=== PATIENT | female | born 1990 | race Caucasian/White ===

== ENCOUNTER → 2018-09-13 07:37 | Outpatient (CLI) | payer OTHER, SELFPAY ==
--- NOTE | 2018-09-13 07:42 | US_ITS ---
STUDY: SECOND AND THIRD TRIMESTER OBSTETRICAL ULTRASOUND REASON FOR EXAM: Female, 28 years old. Routine survey. LMP: April 13, 2018. TECHNIQUE: Transabdominal TECHNICAL QUALITY: Adequate. PRIOR ULTRASOUND: None. FINDINGS: There is a single intrauterine fetus. The fetus is in a cephalic presentation. There is demonstrated cardiac activity with a heart rate of 128 bpm. There is a normal amniotic fluid volume. The largest amniotic fluid pocket measures 9.2 cm x 3.7 cm. The amniotic fluid index (OFELIA) is normal. The placenta is anterior in location and is not low lying. There are Grade 0 placental changes. The cervix measures 3.3 cm in length. The bilateral adnexal regions are normal. BIOMETRY: BPD: 4.89 cm: 20 weeks, 6 days HC: 18.83 cm: 21 weeks, 1 days AC: 15.38 cm: 20 weeks, 5 days FL: 3.41 cm: 20 weeks, 6 days CI: 75% FL/BPD: 70% FL/HC: FL/AC: 22% HC/AC: 1.22 age by current US: 21 weeks, 0 days. LORRAINE by current US: January 24, 2019. Estimated weight: 371 grams, +/- 54 grams, 6 %. Age by LMP: 21 weeks, 6 days. LORRAINE by LMP: January 18, 2019. ANATOMY: Gender: Male Cranium: Normal lateral ventricles. Normal choroid plexus. Normal cerebellum. Normal cisterna magna. Normal face, nose and lips. Chest: Normal 4-chamber heart. Abdomen/Pelvis: Normal diaphragm. Normal stomach. Normal abdominal wall. Normal cord insertion. Normal 3 vessel cord. Normal kidneys. Normal bladder. Spine: There is limited visualization of the spine due to the positioning and maternal body habitus. Extremities: Normal bilateral upper extremities. Normal bilateral lower extremities. US/OB Anatomy Scan IMPRESSION: Single live intrauterine gestation with a mean gestational age of 21 weeks. Electronically Signed: Dawson John MD at 9:28 EST Tel [phone], Service support ,
== END ==
DX: Z36.2 Encounter for other antenatal screening follow-up (principal)
CPT/HCPCS: 76805

== ENCOUNTER 2018-12-11 18:45 | Outpatient (CLI) | payer OTHER, SELFPAY ==
[2018-12-11 19:14] VITALS: BMI 41.5
--- NOTE | 2018-12-12 11:19 | OB.TRI.NOTE ---
- Problem List (1) Decreased movements in third trimester Status: Acute Qualifiers: Fetus number: single or unspecified fetus Qualified Code(s): O36.8130 - Decreased movements, third trimester, not applicable or unspecified History of Present Illness Date of Service: 12/11/18 Was patient seen by the physician?: No Reason For Visit: DECREASED MOVEMENT Date of Service: 12/11/18 Final LORRAINE: 01/18/19 Final LORRAINE Source: US <20 weeks Gestational age: 34 Weeks and 5 Days History of Present Illness: Patient presents reporting lower back cramping and irregular contractions throughout the day. Over the last few hours she has noticed decreased movements. Patient denies fever, vaginal bleeding or vaginal discharge. Allergies No Known Allergies Allergy (Verified 12/11/18 19:15) Review of Systems Unable to obtain accurate/complete ROS d/t: See nursing note for ROS Physical Exam Vitals: VSS, Afebrile - see nursing note for PE NST - FHR Rate Baby A Baseline: 150 Variability:: Moderate Accelerations:: 15 x 15 Decelerations:: None NST Reactive:: Yes, Appropriate for gestational age FHR Category:: Category I Uterine Activity:: Uterine irritability noted on tocometer Impression/Plan 28 y/o @ 34+ weeks, Decreased Movement - Category I FHT noted P: 1) Reassurance provided - [facility] teaching and PTL precautions reviewed 2) Patient to follow-up with [place] [facility] as scheduled Alyce MERRILL
--- NOTE | 2018-12-12 11:25 | OB.TRI.HP_ITS ---
- Problem List (1) Decreased movements in third trimester Status: Acute Qualifiers: Fetus number: single or unspecified fetus Qualified Code(s): O36.8130 - Decreased movements, third trimester, not applicable or unspecified History of Present Illness Date of Service: 12/11/18 Was patient seen by the physician?: No Reason For Visit: DECREASED MOVEMENT Date of Service: 12/11/18 Final LORRAINE: 01/18/19 Final LORRAINE Source: US <20 weeks Gestational age: 34 Weeks and 5 Days History of Present Illness: Patient presents reporting lower back cramping and irregular contractions throughout the day. Over the last few hours she has noticed decreased movements. Patient denies fever, vaginal bleeding or vaginal discharge. Allergies No Known Allergies Allergy (Verified 12/11/18 19:15) Review of Systems Unable to obtain accurate/complete ROS d/t: See nursing note for ROS Physical Exam Vitals: VSS, Afebrile - see nursing note for PE NST - FHR Rate Baby A Baseline: 150 Variability:: Moderate Accelerations:: 15 x 15 Decelerations:: None NST Reactive:: Yes, Appropriate for gestational age FHR Category:: Category I Uterine Activity:: Uterine irritability noted on tocometer Impression/Plan 28 y/o @ 34+ weeks, Decreased Movement - Category I FHT noted P: 1) Reassurance provided - [facility] teaching and PTL precautions reviewed 2) Patient to follow-up with [place] [facility] as scheduled Alyce MERRILL
== END 2018-12-11 20:00 | disposition home or self-care (01) ==
LOC: WPOUT 18:55 → WP 18:56
PROVIDERS: Referring Provider Advanced Practice Midwife; Visit Provider Advanced Practice Midwife
DX: O36.8130 Decreased fetal movements, third trimester, not applicable or unspecified (principal); Z3A.34 34 weeks gestation of pregnancy
CPT/HCPCS: 59025; 59050; 99218; G0378

== ENCOUNTER 2018-12-13 12:30 | Outpatient (CLI) | payer OTHER, SELFPAY ==
[2018-12-13] MEDS: Lactated Ringers 1,000 ML 999 ML IV (13:05)
[2018-12-13 13:09] VITALS: BMI 40.6
[2018-12-13 13:25] LABS: Hematocrit 39.3 % (37-47); Hemoglobin 12.9 g/dl (12.0-15.0); Mean Corp Hgb Conc 32.8 g/gl (32-36); Mean Corpuscular Hgb 26.7 pg (27.0-32.0); Mean Corpuscular Volume 81.4 fL (81-99); Mean Platelet Vol. 8.7 fl (6.2-12.0); Platelet Count 331 K/mm3 (150-450); RBC Distribution Width CV 15.1 % (11.6-14.6); RBC Distribution Width SD 44.6 fl (35.1-43.9); Red Blood Count 4.83 M/mm3 (4.2-5.4); White Blood Count 13.4 K/mm3 (4.4-11.0)
[2018-12-13 13:39] LABS: Scan Indicated on CBC? Y/N NO
[2018-12-13 13:53] LABS: ALB/GLOB Ratio 0.7 RATIO (0.9-2.4); AST(SGOT) 22 U/L (15-37); Alanine Aminotransfer ALT/SGPT 26 U/L (13-56); Albumin, Serum 2.9 g/dL (3.2-5.0); Alkaline Phosphatase 107 U/L (45-117); Anion Gap 7 (5-15); BUN 7 mg/dL (7-18); BUN/Creat Ratio 12.3 RATIO (10-20); Calcium,Total 8.3 mg/dL (8.5-10.1); Chloride 108 mmol/L (98-107); Creatinine, Serum 0.57 mg/dL (0.55-1.02); EST Glomerular Filtration Rate 133 mL/min (>60); Est Glom Filt Rate - Afr Amer 160 mL/min (>60); Free T3 2.4 pg/mL (2.18-3.98); Glucose 87 mg/dL (74-106); Potassium 3.5 mmol/L (3.5-5.1); Protein, Total 6.9 g/dL (6.4-8.2); Sodium Level 137 mmol/L (136-145); T4 Free Direct 0.84 ng/dL (0.76-1.46); Thyroid Stim Hormone (TSH) 0.97 uIU/mL (0.358-3.74)
--- NOTE | 2018-12-13 17:01 | OB.TRI.PN ---
Progress Notes Date of Service: 12/13/18 Progress Note: S: 28 year old 34w6d LORRAINE female Patient seen in office for visit. heart rate elevated between 170-180. NST showed baseline rate of 170. Sent to L&D for extended monitoring. Denied any feaver, aches, chills, flu like symptoms, new medications or other concerns. O: NST reactive, 155, moderate variability, accels, variable decel. Reactive NST A: tachycardia P: 1) 1 liter LR, vitals, CMP, CBC, TSH, free T3 and free T4 all normal. 2) D/C home and follow up in office this week 3) Consult [facility] regarding possible echo. Laboratory Studies: Laboratory Tests 12/13/18 12/13/18 Range/Units 13:05 13:05 WBC 13.4 H (4.4-11.0) K/mm3 RBC 4.83 (4.2-5.4) M/mm3 Hgb 12.9 (12.0-15.0) g/dl Hct 39.3 (37-47) % MCV 81.4 (81-99) fL MCH 26.7 L (27.0-32.0) pg MCHC 32.8 (32-36) g/gl RDW 15.1 H (11.6-14.6) % RDW Differential 44.6 H (35.1-43.9) fl Plt Count 331 (150-450) K/mm3 MPV 8.7 (6.2-12.0) fl Sodium 137 (136-145) mmol/L Potassium 3.5 (3.5-5.1) mmol/L Chloride 108 H (98-107) mmol/L Carbon Dioxide 22.0 (21.0-32.0) mmol/L Anion Gap 7 (5-15) BUN 7 (7-18) mg/dL Creatinine 0.57 (0.55-1.02) mg/dL Estim Creat Clear Calc 146.90 ml/min Est GFR (MDRD) Af Amer 160 (>60) mL/min Est GFR (MDRD) Non-Af 133 (>60) mL/min BUN/Creatinine Ratio 12.3 (10-20) RATIO Glucose 87 (74-106) mg/dL Calcium 8.3 L (8.5-10.1) mg/dL Total Bilirubin 0.30 (0.20-1.00) mg/dL AST 22 (15-37) U/L ALT 26 (13-56) U/L Alkaline Phosphatase 107 (45-117) U/L Total Protein 6.9 (6.4-8.2) g/dL Albumin 2.9 L (3.2-5.0) g/dL Globulin 4.0 (2.2-4.2) g/dL Albumin/Globulin Ratio 0.7 L (0.9-2.4) RATIO TSH 0.97 (0.358-3.74) uIU/mL Free T4 0.84 (0.76-1.46) ng/dL Free T3 pg/dL 2.4 (2.18-3.98) pg/mL
--- NOTE | 2018-12-13 17:05 | OB.TRI.PN_ITS ---
Progress Notes Date of Service: 12/13/18 Progress Note: S: 28 year old 34w6d LORRAINE female Patient seen in office for visit. heart rate elevated between 170-180. NST showed baseline rate of 170. Sent to L&D for extended monitoring. Denied any feaver, aches, chills, flu like symptoms, new medications or other concerns. O: NST reactive, 155, moderate variability, accels, variable decel. Reactive NST A: tachycardia P: 1) 1 liter LR, vitals, CMP, CBC, TSH, free T3 and free T4 all normal. 2) D/C home and follow up in office this week 3) Consult [facility] regarding possible echo. Laboratory Studies: Laboratory Tests 12/13/18 12/13/18 Range/Units 13:05 13:05 WBC 13.4 H (4.4-11.0) K/mm3 RBC 4.83 (4.2-5.4) M/mm3 Hgb 12.9 (12.0-15.0) g/dl Hct 39.3 (37-47) % MCV 81.4 (81-99) fL MCH 26.7 L (27.0-32.0) pg MCHC 32.8 (32-36) g/gl RDW 15.1 H (11.6-14.6) % RDW Differential 44.6 H (35.1-43.9) fl Plt Count 331 (150-450) K/mm3 MPV 8.7 (6.2-12.0) fl Sodium 137 (136-145) mmol/L Potassium 3.5 (3.5-5.1) mmol/L Chloride 108 H (98-107) mmol/L Carbon Dioxide 22.0 (21.0-32.0) mmol/L Anion Gap 7 (5-15) BUN 7 (7-18) mg/dL Creatinine 0.57 (0.55-1.02) mg/dL Estim Creat Clear Calc 146.90 ml/min Est GFR (MDRD) Af Amer 160 (>60) mL/min Est GFR (MDRD) Non-Af 133 (>60) mL/min BUN/Creatinine Ratio 12.3 (10-20) RATIO Glucose 87 (74-106) mg/dL Calcium 8.3 L (8.5-10.1) mg/dL Total Bilirubin 0.30 (0.20-1.00) mg/dL AST 22 (15-37) U/L ALT 26 (13-56) U/L Alkaline Phosphatase 107 (45-117) U/L Total Protein 6.9 (6.4-8.2) g/dL Albumin 2.9 L (3.2-5.0) g/dL Globulin 4.0 (2.2-4.2) g/dL Albumin/Globulin Ratio 0.7 L (0.9-2.4) RATIO TSH 0.97 (0.358-3.74) uIU/mL Free T4 0.84 (0.76-1.46) ng/dL Free T3 pg/dL 2.4 (2.18-3.98) pg/mL
== END 2018-12-13 14:50 | disposition home or self-care (01) ==
LOC: WPOUT 12:34 → OBT 12:35
PROVIDERS: Referring Provider Advanced Practice Midwife; Visit Provider Advanced Practice Midwife
DX: O76 Abnormality in fetal heart rate and rhythm complicating labor and delivery (principal); Z3A.34 34 weeks gestation of pregnancy
CPT/HCPCS: 96360; 36415; 59025; 59050; 80053; 84439; 84443; 84481; 85027; 99218; G0378

== ENCOUNTER 2019-01-13 11:00 | Inpatient (IN) | payer OTHER, SELFPAY ==
[2019-01-13 10:43] VITALS: BMI 42.9
[2019-01-13 10:58] LABS: ROM Internal Control Test YES-OK TO RESULT pt. (Internal QC); ROM Patient Test POSITIVE (Negative)
[2019-01-13] MEDS: 0.9% Saline Lock 10 ML Syringe IV ×2 (11:20→20:16)
[2019-01-13 11:31] LABS: Absolute Lymphocyte Count 1.97 X10^3/ul (0.83-4.51); Absolute Neutrophil Count 12.5 X10^3/uL (2.0-7.7); Basophil# 0.01 X10^3/uL; Basophil% 0.1 % (0-1); Eosinophil# 0.09 X10^3/uL; Eosinophils% 0.6 % (0-5); Hemoglobin 12.6 g/dl (12.0-15.0); Lymphocyte # 1.97 X10^3/ul (4.0); Mean Corp Hgb Conc 33.2 g/gl (32-36); Mean Corpuscular Hgb 26.2 pg (27.0-32.0); Mean Platelet Vol. 8.4 fl (6.2-12.0); Monocyte# 0.57 X10^3/uL; Monocyte% 3.8 % (0-10); Neutrophil # 12.46 X10^3/uL (2.7-7.7); Neutrophil % 82.2 % (47-70); POSITIVE COUNT NO; POSITIVE DIFFERENTIAL NO; POSITIVE MORPHOLOGY NO; Platelet Count 323 K/mm3 (150-450); RBC Distribution Width CV 15.7 % (11.6-14.6); RBC Distribution Width SD 45.3 fl (35.1-43.9); Red Blood Count 4.81 M/mm3 (4.2-5.4); White Blood Count 15.2 K/mm3 (4.4-11.0)
--- NOTE | 2019-01-13 12:29 | PCM.HP.OB ---
History Date of Admission: 01/13/19 Final LORRAINE: 01/18/19 Final LORRAINE Source: US <20 weeks Gestational age: 39 Weeks and 2 Days History of this : This is a 28 year-old, G [2], P [0], at 39 weeks gestational age presenting to triage after labor evaluation at OB office today for labor. Patient reports loss of mucus plug this morning and initiation of regular ctx q 5-7 minutes apart with increasing strength and intensity. Patient was noted to be 3-4/80/-3 in office, upon standing up to leave patient had large gush of clear fluid. Patient presents for r/o ROM with possible admission. Allergies No Known Allergies Allergy (Verified 12/13/18 12:47) Home Medications: Home Medications Vits [Prenatabs FA] 1 tablet PO DAILY 12/11/18 Cholecalciferol (Vitamin D3) [Vitamin D3] 2,000 unit PO DAILY 12/13/18 Smoking Status: Former smoker Alcohol: None Number of Fetus(es): 1 Heart Tracing: Baseline 150, moderate variability, + accels, no decels noted TOCO Analysis: Ctx q 3-6 minutes mild to moderate strength by palpation History Past Pregnancies: Past Pregnancies Delivery Date Name GA/Weeks Outcome Route Weight Gender Labor Length Anesthesia Delivery Location Provider FOB 2012 SAB Labs: O+ Abs Neg, Rubella Immune, HIV NR, HepBsAg Neg, Urine Culture Neg, Urine Tox Neg, GC/CT Neg/Neg, Syphilis Neg, CBC = WNL x 2, 1 hour GCT = 72, GBS Neg Expected Delivery Method: Spontaneous Vaginal Describe any other labor & delivery plans:: Plans [facility]B Number of Visits: MICHELLE at 22 weeks to [facility] from [facility] Practitioner x 15 visits. Review of Systems Constitutional: Denies: Chills, Fever, Weight Change HEENT: Denies: Head Aches, Sinus Congestion, Sinus Drainage Cardiovascular: Denies: Chest Pain, Palpitations Respiratory: Denies: Cough, Shortness of breath at rest, Sputum production Gastrointestinal: Denies: Abdominal Pain, Nausea, Vomiting Genitourinary: Denies: Dysuria Musculoskeletal: Denies: Joint Pain, Joint Tenderness Skin: Denies: Rash, Wounds Neurological: Denies: Numbness, Tingling, Focal weakness Psychiatric: Denies: Anxiety, Depression, Homicidal Ideations, Suicidal Ideations Hematologic/ Lymphatic: Denies: Easy Bruising, Easy Bleeding Physical Exam Vitals: VSS, Afebrile General: Alert, Oriented x3, No apparent distress HEENT: Atraumatic, Normocephalic. 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 Negative for: Vulvar lesions Estimated gestational size: Appropriate for gestational size Presentation: Cephalic Cervix Dilation (cm): 3.5 - Per Dr. Delgado exam in office Station: -3 Effacement (%): 80 Assessment/Plan All Active Problems Decreased movements in third trimester (Acute) This is a 28 year-old, G [2], P [0], at 39 weeks gestational age, Active Labor, SROM for clear fluid, Category I FHT P: 1) ROM Plus is positive - admit patient in labor. Dr. Delgado aware of admission 2) Expectant management at this time 3) Discussion of initiating IV pitocin if contractions do not progress - patient is open to plan if medical indication for labor augmentation noted 4) Continue present management at this time - encourage ambulation and position changes Alyce MERRILL
--- NOTE | 2019-01-13 14:20 | PN.OBGYN_ITS ---
Subjective: Patient has been ambulating the halls, reports that contractions are intensifying and becoming stronger. Decision for SVE to be done at this time to assess patient progress. Objective: FHT by intermittent auscultation 140 baseline, no decels noted during or after contraction Ctx q 3-5 minutes by palpation, palpate moderately strong SVE+ 4-5/80/-2, posterior cervix - Physical Exam General: Alert, Oriented x3, Cooperative HEENT: Atraumatic, Normocephalic Neck: Supple Abdomen: Soft, Non Tender Extremities: No edema, Capillary Refill Less than 3 Seconds Skin: No rashes, No breakdown Musculoskeletal: No Tenderness to Palpation of Joints or Extremities Neurological: Cranial nerves II-XII grossly intact Psych/Mental Status: Normal Affect, Appropriate Weight: 282 lb 6.594 oz Body Mass Index (BMI) 42.9 Laboratory Tests Past 24 Hrs 01/13/19 01/13/19 01/13/19 10:35 11:20 11:20 WBC 15.2 H RBC 4.81 Hgb 12.6 Hct 38.0 MCV 79.0 L MCH 26.2 L MCHC 33.2 RDW 15.7 H RDW Differential 45.3 H Plt Count 323 MPV 8.4 Immature Gran % (Auto) 0.300 Neut % (Auto) 82.2 H Lymph % (Auto) 13.0 L [place] % (Auto) 3.8 Eos % (Auto) 0.6 Baso % (Auto) 0.1 Absolute Neuts (auto) 12.5 H Absolute Lymphs (auto) 1.97 Total Counted Not Reportable Vag Amniotic Fld Detect POSITIVE H Blood Type O POSITIVE Antibody Screen NEGATIVE Medical Necessity - Tobacco Use Smoking Status: Former smoker Assessment/Plan All Active Problems Decreased movements in third trimester (Acute) 28 y/o @ 39+ weeks, Active Labor, Category I FHT 1) Continue expectant management 2) Reassess cervix PRN Alyce Ballard APRN-CNM
--- NOTE | 2019-01-13 17:23 | PCM.PN.OB ---
Subjective: Patient has been ambulating around the room on and off - reporting an increase in contractions at this time. Reports that she is now feeling contractions all over her abdomen and not just down low and into her back. Patient continues to report +clear fluid leaking, + FM still noted. Objective: VSS, Afebrile FHT baseline 150, moderate variability, + accels, no decels noted Ctx q 2-4 minutes, palpate moderate to strong SVE = 5-6/90/-2, cervix midposition - Physical Exam General: Alert, Oriented x3, Cooperative HEENT: Atraumatic, Normocephalic Neck: Supple Lungs: Normal air movement Cardiovascular: Regular rate, No murmurs Abdomen: Soft, Non Tender Extremities: No edema, Capillary Refill Less than 3 Seconds Skin: No rashes, No breakdown Musculoskeletal: No Tenderness to Palpation of Joints or Extremities Neurological: Cranial nerves II-XII grossly intact, Deep Tendon Reflexes 2+/4 and Symmetrical Psych/Mental Status: Normal Affect, Appropriate Weight: 282 lb 6.594 oz Body Mass Index (BMI) 42.9 Laboratory Tests Past 24 Hrs 01/13/19 01/13/19 01/13/19 10:35 11:20 11:20 WBC 15.2 H RBC 4.81 Hgb 12.6 Hct 38.0 MCV 79.0 L MCH 26.2 L MCHC 33.2 RDW 15.7 H RDW Differential 45.3 H Plt Count 323 MPV 8.4 Immature Gran % (Auto) 0.300 Neut % (Auto) 82.2 H Lymph % (Auto) 13.0 L [place] % (Auto) 3.8 Eos % (Auto) 0.6 Baso % (Auto) 0.1 Absolute Neuts (auto) 12.5 H Absolute Lymphs (auto) 1.97 Total Counted Not Reportable Vag Amniotic Fld Detect POSITIVE H Blood Type O POSITIVE Antibody Screen NEGATIVE Medical Necessity - Tobacco Use Smoking Status: Former smoker Assessment/Plan All Active Problems Decreased movements in third trimester (Acute) 28 y/o @ 39 + weeks, Category I FHT, Active Labor, PROM x 8 hours P: 1) Continue present management - patient is making cervical change. Consider initiation of IV pitocin for labor augmentation if minimal or no cervical change noted with next exam. 2) Encourage position changes and PO hydration at this time 3) Reassess cervical change PRN Alyce Elio SUPERVISOR [employer]-CNM
[2019-01-13] MEDS: Lactated Ringers 1,000 ML 50 ML IV ×2 (20:16→21:18)
--- NOTE | 2019-01-13 20:32 | PN.OBGYN_ITS ---
Subjective: Patient is moving well with contractions and feeling increase pelvic pressure. Patient is desiring a repeat cervical check at this time, she is considering getting an epidural as she is feeling very tired. Objective: FHT baseline 150, moderate variability, no decels noted, few accels Ctx q 4 minutes, palpating moderately strong SVE = unchanged, 5-6/90/-2 - Physical Exam General: Alert, Oriented x3, Cooperative HEENT: Atraumatic, Normocephalic Neck: Supple Lungs: Normal air movement Cardiovascular: Regular rate, No murmurs Abdomen: Soft, Non Tender Extremities: No edema, Capillary Refill Less than 3 Seconds Skin: No rashes, No breakdown Musculoskeletal: No Tenderness to Palpation of Joints or Extremities Neurological: Cranial nerves II-XII grossly intact Psych/Mental Status: Normal Affect, Appropriate Weight: 282 lb 6.594 oz Body Mass Index (BMI) 42.9 Laboratory Tests Past 24 Hrs 01/13/19 01/13/19 01/13/19 10:35 11:20 11:20 WBC 15.2 H RBC 4.81 Hgb 12.6 Hct 38.0 MCV 79.0 L MCH 26.2 L MCHC 33.2 RDW 15.7 H RDW Differential 45.3 H Plt Count 323 MPV 8.4 Immature Gran % (Auto) 0.300 Neut % (Auto) 82.2 H Lymph % (Auto) 13.0 L [place] % (Auto) 3.8 Eos % (Auto) 0.6 Baso % (Auto) 0.1 Absolute Neuts (auto) 12.5 H Absolute Lymphs (auto) 1.97 Total Counted Not Reportable Vag Amniotic Fld Detect POSITIVE H Blood Type O POSITIVE Antibody Screen NEGATIVE Medical Necessity - Tobacco Use Smoking Status: Former smoker Assessment/Plan All Active Problems Decreased movements in third trimester (Acute) 28 y/o @ 39+ weeks, Protracted Active Phase of Labor, Category I FHT P: 1) Patient desires epidural, will contact anesthesia now at this time to p carrole 2) Pitocin started per protocol for labor augmentation - patient requests this be started after epidural placement 3) Will reassess patient's cervix PRN with change to maternal or status Alyce Ballard APRN-LUZMA
[2019-01-13] MEDS: fentaNYL-bupivacaine (epidural) 100 ML BAG EPIDURAL (21:30)
[2019-01-13] MEDS: Cefazolin 2 GM in 0.9% Normal Saline 100 ML IV (22:56)
[2019-01-13] MEDS: Sodium Citrate/Citric Acid 30 ML UDC PO (22:56)
--- NOTE | 2019-01-14 00:43 | PCM.OPRPT ---
Report of Operation Date of Procedure: 01/14/19 Pre-Operative Diagnosis: angioedema. upper airway obstruction Post-Operative Diagnosis: same Surgery/Procedure Performed:: Tracheotomy (Emergent) Description of Surgical Findings:: Massive upper airway angioedema senior fire protection engineer: None - justo Diaz senior fire protection engineer: Rodney Diaz senior fire protection engineer: Tyrone Can Type of Anesthesia:: General Anesthesiologist: Fermin Ibrahim Specimen's removed: none Drains: none Estimated Blood Loss (mL): <5 cc Description of Procedure: Called to see the patient emergently for a tracheotomy. 28 yo female who developed angioedema. The airway was secured tenuously with an LMA. Definitive airway was needed. The patient was found to be in the C section suite on the OR table. The abdomen was being closed surgically. A shoulder roll was placed. The neck was prepped steriley. A 3.5 cm incision was made with a 15 blade. The subcutaneous fat was removed with a Bovie. The strap muscles were identified. They were skeletonized and lateralized with Allis clamps. The superior portion of the thyroid isthmus was divided with Bovie cautery. The cricoid was identified. A cricoid hook was placed on the cricoid and retracted superiorly. The second tracheal ring was removed (anterior window) with a scalpel and the third tracheal ring was split with scissors. A trach bias cutting machine operator vertical was used. A #6 cuffed Shiley tracheotomy tube was placed in the trachea. The obturator was removed and the inner canula placed. The circuit was placed and we saw immediate CO2. The cuff was inflated. The trach tube was sewn to the skin with 3-0 Nylon. Trach ties were secured to the tube and tied around the neck. The procedure was terminated. Blood loss minimal, replacement none. Sponge, needle and instrument count were correct at the end of the procedure.
--- NOTE | 2019-01-14 00:53 | OP.PCM_ITS ---
Report of Operation Date of Procedure: 01/14/19 Pre-Operative Diagnosis: angioedema. upper airway obstruction Post-Operative Diagnosis: same Surgery/Procedure Performed:: Tracheotomy (Emergent) Description of Surgical Findings:: Massive upper airway angioedema twisthand: None - justo Diaz twisthand: Rodney Diaz twisthand: Tyrone Can Type of Anesthesia:: General Anesthesiologist: Fermin Ibrahim Specimen's removed: none Drains: none Estimated Blood Loss (mL): <5 cc Description of Procedure: Called to see the patient emergently for a tracheotomy. 28 yo female who developed angioedema. The airway was secured tenuously with an LMA. Definitive airway was needed. The patient was found to be in the C section suite on the OR table. The abdomen was being closed surgically. A shoulder roll was placed. The neck was prepped steriley. A 3.5 cm incision was made with a 15 blade. The subcutaneous fat was removed with a Bovie. The strap muscles were identified. They were skeletonized and lateralized with Allis clamps. The superior portion of the thyroid isthmus was divided with Bovie cautery. The cricoid was identified. A cricoid hook was placed on the cricoid and retracted superiorly. The second tracheal ring was removed (anterior window) with a scalpel and the third tracheal ring was split with scissors. A trach spring salvage worker was used. A #6 cuffed Shiley tracheotomy tube was placed in the trachea. The obturator was removed and the inner canula placed. The circuit was placed and we saw immediate CO2. The cuff was inflated. The trach tube was sewn to the skin with 3-0 Nylon. Trach ties were secured to the tube and tied around the neck. The procedure was terminated. Blood loss minimal, replacement none. Sponge, needle and instrument count were correct at the end of the procedure.
[2019-01-14 00:55] LABS: Base Excess -15 mmol/L (-2 to +2); Bicarbonate 17.4 mmol/L (22-26); Blood Gas Specimen Type ART; PO2 97 mmHG (75-100); SITE L Brachial; SO2 90 % (95-99); Time Given 7; Total Carbon Dioxide 20 mmol/L; pCO2 82.8 mmHg (35-45); pH 6.93 (7.35-7.45)
[2019-01-14 00:55] LABS: Base Excess -12 mmol/L (-2 to +2); Bicarbonate 15.8 mmol/L (22-26); Blood Gas Specimen Type ART; PO2 172 mmHG (75-100); SITE OTHER; SO2 99 % (95-99); Time Given 1246; Total Carbon Dioxide 17 mmol/L; pCO2 40.9 mmHg (35-45)
[2019-01-14 00:55] LABS: Base Excess -12 mmol/L (-2 to +2); Bicarbonate 18.2 mmol/L (22-26); Blood Gas Specimen Type ART; FI02 100; PO2 325 mmHG (75-100); SITE OTHER; SO2 100 % (95-99); Time Given 1229; Total Carbon Dioxide 20 mmol/L; pCO2 62.5 mmHg (35-45); pH 7.07 (7.35-7.45)
[2019-01-14 01:31] LABS: Base Excess -9 mmol/L (-2 to +2); Bicarbonate 18.1 mmol/L (22-26); Blood Gas Specimen Type ART; FI02 100; Mode A-C; O2 Delivery Device Vent; PEEP 0; PO2 179 mmHG (75-100); RR 20; SITE OTHER; SO2 99 % (95-99); Time Given 103; Total Carbon Dioxide 19 mmol/L; Vt 600; pCO2 38.7 mmHg (35-45); pH 7.28 (7.35-7.45)
--- NOTE | 2019-01-14 01:45 | PCM.OPRPT ---
Report of Operation Date of Procedure: 01/13/19 Pre-Operative Diagnosis: (1) Nonreassuring heart tones Post-Operative Diagnosis: (1) Non reassuring heart tones (2) S/p maternal anaphylactic reaction Surgery/Procedure Performed:: Low transverse section Description of Surgical Findings:: Normal maternal uterus & ovaries photo manager: Nubia Type of Anesthesia:: Epidural Anesthesiologist: Fermin Ibrahim Specimen's removed: Placenta Drains: Og Estimated Blood Loss (mL): 500ml - Complications Maternal anaphylactic reaction. Patient required resuscitation and emergent tracheotomy. Transferred to [facility] by life flight. - Admit VTE Documentation VTE Present on Admission: No VTE Mechan Device Prophylaxis: SCD's Delivery Classification: NINA Final LORRAINE: 01/18/19 Gestational age: 41 Weeks and 3 Days Indications for : Distress Description of Procedure: Patient taken to OR where epidural anesthesia was dosed. She was prepped and draped in normal sterile fashion in a dorsal lithotomy position with a leftward tilt. After ensuring adequacy of anesthesia the Pfannensteil skin incision was made and carried through to the underlying fascia. The fascia was incised and the rectus muscles were in the midline and the peritoneum was entered bluntly. The bladder flap was dissected down carefully with the Metzenbaum scissors and blunt dissection. The uterus was incised in a transverse fashion and then incision extended with cephalocaudad traction. The fetus was vertex and the head was brought to the incision in the flexed position. With good fundal pressure the head delivered. head was gently guided to allow delivery of anterior & posterior shoulders. No excess traction placed on head. The body delivered easily. The 3VC cord was clamped and cut and the infant handed off to the waiting RN. The placenta was delivered w/ gentle traction and fundal massage and the uterus was exteriorized and cleared of all clots and debris. The uterine incision was closed with 1 vicryl suture in a running locked fashion. A second imbricating layer of monocryl was placed. The uterus was returned to the peritoneal cavity. The patient complained of shortness of breath during the imbricating layer. Anesthesia assessed patient for airway. Code yael was called later. Please see nursing & anesthesia documentation for additional details. Patient's bowels were edematous & protruding from abdomen. Thus unable to close the fascia. packed the abdomen with laps. He then closed the skin with a loose running suture. [facility] MICU & COP EXAMINER services aware that patient will need to return to OR for packing removal & surgical closure. Amniotic Membrane Rupture Type: Spontaneous Amniotic Fluid Description: Clear Placenta [facility]position: [facility] Drain: Og to straight drain Fluids Replaced: Normal saline - see nursing documentation Cord Entanglement: None Cord Vessel Description: 3 Vessels Esitmated Blood Loss (ml): 500ml Gender: Male (1 minute): 3 (5 minute): 9 Delayed cord clamping: No Pre-op Antibiotic Given: Ancef 2 grams IV x1 - Azithromycin 500mg
--- NOTE | 2019-01-14 01:52 | OP.PCM_ITS ---
Report of Operation Date of Procedure: 01/13/19 Pre-Operative Diagnosis: (1) Nonreassuring heart tones Post-Operative Diagnosis: (1) Non reassuring heart tones (2) S/p maternal anaphylactic reaction Surgery/Procedure Performed:: Low transverse section Description of Surgical Findings:: Normal maternal uterus & ovaries integrated circuit design engineer: Nubia Type of Anesthesia:: Epidural Anesthesiologist: Fermin Ibrahim Specimen's removed: Placenta Drains: Og Estimated Blood Loss (mL): 500ml - Complications Maternal anaphylactic reaction. Patient required resuscitation and emergent tracheotomy. Transferred to [facility] by life flight. - Admit VTE Documentation VTE Present on Admission: No VTE Mechan Device Prophylaxis: SCD's Delivery Classification: NINA Final LORRAINE: 01/18/19 Gestational age: 41 Weeks and 3 Days Indications for : Distress Description of Procedure: Patient taken to OR where epidural anesthesia was dosed. She was prepped and draped in normal sterile fashion in a dorsal lithotomy position with a leftward tilt. After ensuring adequacy of anesthesia the Pfannensteil skin incision was made and carried through to the underlying fascia. The fascia was incised and the rectus muscles were in the midline and the peritoneum was entered bluntly. The bladder flap was dissected down carefully with the Metzenbaum scissors and blunt dissection. The uterus was incised in a transverse fashion and then incision extended with cephalocaudad traction. The fetus was vertex and the head was brought to the incision in the flexed position. With good fundal pressure the head delivered. head was gently guided to allow delivery of anterior & posterior shoulders. No excess traction placed on head. The body delivered easily. The 3VC cord was clamped and cut and the infant handed off to the waiting RN. The placenta was delivered w/ gentle traction and fundal massage and the uterus was exteriorized and cleared of all clots and debris. The uterine incision was closed with 1 vicryl suture in a running locked fashion. A second imbricating layer of monocryl was placed. The uterus was returned to the peritoneal cavity. The patient complained of shortness of breath during the imbricating layer. Anesthesia assessed patient for airway. Code yael was called later. Please see nursing & anesthesia documentation for additional details. Patient's bowels were edematous & protruding from abdomen. Thus unable to close the fascia. packed the abdomen with laps. He then closed the skin with a loose running suture. [facility] MICU & BREAD PACKER services aware that patient will need to return to OR for packing removal & surgical closure. Amniotic Membrane Rupture Type: Spontaneous Amniotic Fluid Description: Clear Placenta Disposition: [facility] Drain: Og to straight drain Fluids Replaced: Normal saline - see nursing documentation Cord Entanglement: None Cord Vessel Description: 3 Vessels Esitmated Blood Loss (ml): 500ml Gender: Male (1 minute): 3 (5 minute): 9 Delayed cord clamping: No Pre-op Antibiotic Given: Ancef 2 grams IV x1 - Azithromycin 500mg
--- NOTE | 2019-01-14 02:10 | PCM.RRT.BLA ---
Rapid Response Note - Blank CODE BLUE summary note: Overhead CODE KEVIN called to [facility] [place] [facility]. Upon arrival with also ED physician Dr. Martin, anesthesiologist, Dr. White present attempting to secure airway with great difficulty and Dr. Delgado, FINE GRADE OPERATOR status post in process of attempted closure. Dr. White noted that near the end of the section patient had become pale, blue with respiratory distress with difficult airway and attempts to intubate were unsuccessful therefore LMA was transiently placed. From records initial intubation attempts 2315 with 3 additional attempts and then eventual LMA placement, repeat intubation attempts with replacement then again of LMA from code records. Upon evaluation of patient lips were notably enlarged and had facial edema concerning for possible angioedema. Per discussion with staff antibiotics have been ordered including Ancef and azithromycin. Given possible reaction to the 1 of these medications and also had received anesthetics Decadron, Pepcid as well as Benadryl IV regimen were initiated. At 2325 patient became pulseless and cardiac chest compressions were initiated with epinephrine injection x2, bicarb with resumption of pulse at 2332. Vitals at that time BP 98/69, heart rate 168, 95% with continued LMA. Patient administered amnio 150 bolus. Additionally had been administered per anesthesiology Erik-Synephrine. Anesthesiology attempted an arterial line. A 2357 cyst atracurium was administered per anesthesiology. Per discussion with FINE GRADE OPERATOR concern for difficulty to possibly close abdomen secondary to notable dilation of the bowels therefore general surgeon, Dr. Cotton contacted per Dr. Delgado to review case and Dr. Can came to the OR to assist with abdominal packing with plan to transition to tertiary care facility with open abdomen. Rn Burn also contacted, Dr. Valderrama and discussed case and agreed with recommendation for transfer to tertiary care facility given severity of presentation and open abdomen. A line eventually successfully placed per Dr. White at 0014. ENT had been called to assist with airway placement and per records Preston Diaz noted to be in the room at 0020 with trach procedure initiated at 0027. Patient initiated on epinephrine drip per Dr. White held but restarted w/ MAP < 65. [facility] contacted per Dr. Martin in [facility] transfer with MICU wagon driver salesperson discussions per Dr. Owens with transfer arranged per request of Dr. Delgado. Upon arrival of [facility] airway in place per ENT, ventilated, maintained on epinephrine drip at 0.3 mics per kilogram with last ABG pH 7.19, CO2 41, O2 172, bicarb 15.8 with an additional 1 amp of bicarb administered. Patient transitioned to [facility] on propofol, epinephrine drips. Critical Care Time: 77 minutes, time from [id number], were spent addressing patient CODE care as noted, review of all data in collaboration with care team in addition to discussion with transfer facility physicians.
--- NOTE | 2019-01-14 02:22 | CPS ---
This RT at bedside for CODE BLUE. All critical blood gas values were shown to at time of result. Antoni also at bedside for CODE BLUE. Andre
--- NOTE | 2019-01-14 02:24 | RRT_ITS ---
Rapid Response Note - Blank CODE BLUE summary note: Overhead CODE KEVIN called to [facility] [place] room 1. Upon arrival with also ED physician Dr. Martin, anesthesiologist, Dr. White present attempting to secure airway with great difficulty and Dr. Delgado, AIX ARCHITECT status post in process of attempted closure. Dr. White noted that near the end of the section patient had become pale, blue with respiratory distress with difficult airway and attempts to intubate were unsuccessful therefore LMA was transiently placed. From records initial intubation attempts 2315 with 3 additional attempts and then eventual LMA placement, repeat intubation attempts with replacement then again of LMA from code records. Upon evaluation of patient lips were notably enlarged and had facial edema concerning for possible angioedema. Per discussion with staff antibiotics have been ordered including Ancef and azithromycin. Given possible reaction to the 1 of these medications and also had received anesthetics Decadron, Pepcid as well as Benadryl IV regimen were initiated. At 2325 patient became pulseless and cardiac chest compressions were initiated with epinephrine injection x2, bicarb with resumption of pulse at 2332. Vitals at that time BP 98/69, heart rate 168, 95% with continued LMA. Patient administered amnio 150 bolus. Additionally had been administered per anesthesiology Erik-Synephrine. Anesthesiology attempted an arterial line. A 2357 cyst atracurium was administered per anesthesiology. Per discussion with AIX ARCHITECT concern for difficulty to possibly close abdomen secondary to notable dilation of the bowels therefore general surgeon, Dr. Cotton contacted per Dr. Delgado to review case and Dr. Can came to the OR to [facility] with abdominal packing with plan to transition to tertiary care facility with open abdomen. Sandal Parts Assembler also contacted, Dr. Valderrama and discussed case and agreed with recommendation for transfer to tertiary care facility given severity of presentation and open abdomen. A line eventually successfully placed per Dr. White at 0014. ENT had been called to assist with airway placement and per records Preston Diaz noted to be in the room at 0020 with trach procedure initiated at 0027. Patient initiated on epinephrine drip per Dr. White held but restarted w/ MAP < 65. [facility] contacted per Dr. Martin in [facility] transfer with MICU school plant consultant discussions per Dr. Owens with transfer arranged per request of Dr. Delgado. Upon arrival of [facility] airway in place per ENT, ventilated, maintained on epinephrine drip at 0.3 mics per kilogram with last ABG pH 7.19, CO2 41, O2 172, bicarb 15.8 with an additional 1 amp of bicarb administered. Patient transitioned to [facility] on propofol, epinephrine drips. Critical Care Time: 77 minutes, time from [id number], were spent addressing patient CODE care as noted, review of all data in collaboration with care team in addition to discussion with transfer facility physicians.
--- NOTE | 2019-01-14 06:09 | NURSING ---
pt left via transport to [facility] @ [id number]; report given to Mena Vu @ [id number]
--- NOTE | 2019-01-19 18:57 | NURSING ---
Mother in [place] , doing better. [facility] . I will pass message on.
== END 2019-01-14 01:36 | disposition short-term general hospital (02) | DRG 3 ==
LOC: WP 01-14 00:43 → WPOUT 01-14 09:47
PROVIDERS: Admitting Provider Obstetrics & Gynecology; Referring Provider Obstetrics & Gynecology; Visit Provider Obstetrics & Gynecology
DX: O76 Abnormality in fetal heart rate and rhythm complicating labor and delivery (principal); O42.02 Full-term premature rupture of membranes, onset of labor within 24 hours of rupture; O99.52 Diseases of the respiratory system complicating childbirth; J98.8 Other specified respiratory disorders; T78.3XXA Angioneurotic edema, initial encounter; Z87.891 Personal history of nicotine dependence; Z3A.40 40 weeks gestation of pregnancy; Z37.0 Single live birth
CPT/HCPCS: 36600; 59025; 59050; 82803; 84112; 85025; 86850; 86900; 92950; 99218; J7120; A4216; G0378